=== PATIENT | female | born 1985 | race Caucasian/White ===

== ENCOUNTER 2023-07-23 00:55 | Emergency (ER) | payer SELFPAY ==
[~2023-07-23] VITALS: Ht 160 cm; Wt 136.4 kg
[~2023-07-23 00:55] MED LIST: OMNICEF 300MG300 MG PO
[2023-07-23 01:07] VITALS: BP 139/89; PULSE 92; TEMP 98.2
[2023-08-13] MEDS ORDERED: XANAX 0.5MG0.5 MG PO (10:09)
[2023-08-13] MEDS ORDERED: HCTZ12.5TAB PO (12:15)
[2023-09-12] MEDS ORDERED: PREDNISONE20 MG PO (21:18)
[2023-09-18] MEDS ORDERED: CEPHALEXIN250 M1 PO (22:26)
== END 2023-07-23 02:35 | disposition left against medical advice (07) ==
LOC: COL.ER 00:55
DX: R10.33 Periumbilical pain (principal); R11.10 Vomiting, unspecified

== ENCOUNTER 2023-09-07 21:15 | Emergency (ER) | payer SELFPAY ==
[~2023-09-07] VITALS: Ht 160 cm; Wt 144.1 kg
[~2023-09-07 21:15] MED LIST changes: +HCTZ12.5TAB PO; +XANAX 0.5MG0.5 MG PO
[2023-09-07 21:22] VITALS: TEMP 98.4
[2023-09-07 21:45] LABS: BASO # 0.1 K/mm3 (0.0-0.2); BASO % 0.6 % (0.0-2.0); EOS # 0.1 K/mm3 (0.0-0.7); EOS % 1.2 % (0.0-4.0); GRAN # 6.5 K/mm3 (1.4-6.5); GRAN % 54.9 % (42.2-75.2); HEMATOCRIT 40.9 % (37.0-47.0); HEMOGLOBIN 13.3 g/dl (12.5-16.0); LYMPH # 4.4 K/mm3 (1.2-3.4); LYMPH % 37.4 % (20.0-51.0); MEAN CELL VOLUME 83 fl (80.0-100.0); MEAN CORPUSCULAR HEMOGLOBIN 27 pg (27-31); MEAN CORPUSCULAR HGB CONC 33 g/dl (33.0-37.0); MEAN PLATELET VOLUME 10.5 fl (7.4-10.4); MONO # 0.7 K/mm3 (0.1-0.6); MONO % 5.6 % (1.7-9.3); PLATELET COUNT 251 K/mm3 (130-400); RED BLOOD COUNT 4.91 M/mm3 (4.10-5.30); REDCELL DISTRIBUTION WIDTH-CV 14.3 % (11.5-14.5)
[2023-09-07 22:01] LABS: ALANINE AMINOTRANSFERASE 21 U/L (0-55); ALBUMIN 3.5 gm/dL (3.5-5.0); ALKALINE PHOSPHATASE 71 U/L (40-150); ANION GAP 9 mmol/L (7-16); AST,SGOT 16 U/L (5-34); BILIRUBIN,TOTAL 0.3 mg/dL (0.2-1.2); BLOOD UREA NITROGEN 8 mg/dL (7-19); C-REACTIVE PROTEIN 0.92 mg/dL (0.00-0.50); CALCIUM 9.1 mg/dL (8.4-10.2); CARBON DIOXIDE 25 mmol/L (22-29); CHLORIDE 105 mmol/L (98-107); CREATININE, serum 0.87 mg/dL (0.57-1.11); GLUCOSE 95 mg/dL (70-99); POTASSIUM 3.6 mmol/L (3.5-4.5); SODIUM 139 mmol/L (136-145); TOTAL PROTEIN 7.1 gm/dL (6.2-8.1)
[2023-09-07 22:07] LABS: TROPONIN-I < 0.010 ng/mL (0.00-0.033)
[2023-09-07 22:10] LABS: BAND 1 % (0-10); EOSINOPHIL 1 % (0-4); HYPOCHROMIA 1+; LYMPHOCYTE 33 % (20.0-51.0); NEUTROPHILS 60 % (42.0-75.2); PLATELET ESTIMATE NORMAL (NORMAL)
[2023-09-07] MEDS ORDERED: PROAIR HFA0.09 MG/AC IH (23:56)
[2023-09-08 00:06] VITALS: BP 154/87; PULSE 87
== END 2023-09-08 00:14 | disposition home or self-care (01) ==
LOC: COL.ER 21:15
PROVIDERS: Nurse Practitioner Primary Care
DX: J40 Bronchitis, not specified as acute or chronic (principal); Z87.891 Personal history of nicotine dependence
CPT/HCPCS: J1200; J1885

== ENCOUNTER 2023-10-15 22:19 | Emergency (ER) | payer OTHER ==
[~2023-10-15] VITALS: Ht 160 cm; Wt 136.4 kg
[~2023-10-15 22:19] MED LIST changes: +CEPHALEXIN250 M1 PO; +PREDNISONE20 MG PO; +PROAIR HFA0.09 MG/AC IH
[2023-10-15 22:25] VITALS: TEMP 97.9
[2023-10-15 23:07] LABS: COLLECTION METHOD CLEAN CATCH
[2023-10-15 23:14] LABS: BASO # 0.1 K/mm3 (0.0-0.2); BASO % 0.6 % (0.0-2.0); EOS # 0.2 K/mm3 (0.0-0.7); EOS % 1.6 % (0.0-4.0); GRAN # 5.5 K/mm3 (1.4-6.5); GRAN % 55.9 % (42.2-75.2); HEMATOCRIT 39.5 % (37.0-47.0); HEMOGLOBIN 12.9 g/dl (12.5-16.0); LYMPH # 3.5 K/mm3 (1.2-3.4); MEAN CELL VOLUME 83 fl (80.0-100.0); MEAN CORPUSCULAR HEMOGLOBIN 27 pg (27-31); MEAN CORPUSCULAR HGB CONC 33 g/dl (33.0-37.0); MEAN PLATELET VOLUME 10.7 fl (7.4-10.4); MONO # 0.6 K/mm3 (0.1-0.6); MONO % 5.6 % (1.7-9.3); PLATELET COUNT 247 K/mm3 (130-400); RED BLOOD COUNT 4.79 M/mm3 (4.10-5.30); REDCELL DISTRIBUTION WIDTH-CV 13.6 % (11.5-14.5)
[2023-10-15 23:17] LABS: PH 6.5 (5.0-8.5); URINE APPEARANCE Hazy (CLEAR/HAZY); URINE BLOOD 2+ (NEGATIVE); URINE COLOR Yellow (YELLOW); URINE GLUCOSE Negative (NEGATIVE); URINE KETONE Negative (NEGATIVE); URINE NITRATE Negative (NEGATIVE); URINE PROTEIN(semi-quant) Negative (NEGATIVE); URINE UROBILINOGEN 0.2 E.U/dL (0.2-1.0)
[2023-10-15 23:31] LABS: ALBUMIN 3.4 gm/dL (3.5-5.0); BILIRUBIN,TOTAL 0.3 mg/dL (0.2-1.2); CALCIUM 9.1 mg/dL (8.4-10.2); CREATININE, serum 0.79 mg/dL (0.57-1.11); POTASSIUM 3.6 mmol/L (3.5-4.5)
[2023-10-15 23:37] LABS: AMORPHOUS CRYSTAL Present (NOT PRESENT); URINE BACTERIA Rare /hpf (NONE SEEN)
[2023-10-16 00:09] VITALS: BP 152/97; PULSE 79
== END 2023-10-16 00:09 | disposition home or self-care (01) ==
LOC: COL.ER 22:19
PROVIDERS: Physician Assistant
DX: R10.30 Lower abdominal pain, unspecified (principal); R35.0 Frequency of micturition; R30.0 Dysuria

== ENCOUNTER 2023-10-30 19:10 | Emergency (ER) | payer OTHER ==
[~2023-10-30] VITALS: Ht 160 cm; Wt 136.4 kg
[2023-10-30 19:25] VITALS: BP 158/113; PULSE 75; TEMP 98.2
== END 2023-10-30 19:57 | disposition left against medical advice (07) ==
LOC: COL.ER 19:10
DX: R51.9 Headache, unspecified (principal)

== ENCOUNTER 2023-11-15 18:19 | Emergency (ER) | payer OTHER ==
[~2023-11-15] VITALS: Ht 160 cm; Wt 136.4 kg
[2023-11-15 18:26] VITALS: TEMP 98
[2023-11-15 18:57] LABS: BASO # 0.1 K/mm3 (0.0-0.2); BASO % 0.5 % (0.0-2.0); EOS # 0.1 K/mm3 (0.0-0.7); GRAN # 4.8 K/mm3 (1.4-6.5); GRAN % 52.2 % (42.2-75.2); HEMATOCRIT 40.1 % (37.0-47.0); HEMOGLOBIN 12.9 g/dl (12.5-16.0); LYMPH # 3.7 K/mm3 (1.2-3.4); LYMPH % 40.8 % (20.0-51.0); MEAN CELL VOLUME 83 fl (80.0-100.0); MEAN CORPUSCULAR HEMOGLOBIN 27 pg (27-31); MEAN CORPUSCULAR HGB CONC 32 g/dl (33.0-37.0); MEAN PLATELET VOLUME 10.4 fl (7.4-10.4); MONO # 0.5 K/mm3 (0.1-0.6); MONO % 5.2 % (1.7-9.3); PLATELET COUNT 252 K/mm3 (130-400); RED BLOOD COUNT 4.85 M/mm3 (4.10-5.30); REDCELL DISTRIBUTION WIDTH-CV 13.6 % (11.5-14.5)
[2023-11-15 19:11] LABS: ALANINE AMINOTRANSFERASE 21 U/L (0-55); ALBUMIN 3.5 gm/dL (3.5-5.0); ALKALINE PHOSPHATASE 60 U/L (40-150); ANION GAP 9 mmol/L (7-16); AST,SGOT 17 U/L (5-34); BILIRUBIN,TOTAL 0.2 mg/dL (0.2-1.2); BLOOD UREA NITROGEN 12 mg/dL (7-19); CALCIUM 8.9 mg/dL (8.4-10.2); CARBON DIOXIDE 23 mmol/L (22-29); CHLORIDE 106 mmol/L (98-107); CREATININE, serum 1.11 mg/dL (0.57-1.11); GLUCOSE 89 mg/dL (70-99); POTASSIUM 3.7 mmol/L (3.5-4.5); SODIUM 138 mmol/L (136-145); TOTAL PROTEIN 6.9 gm/dL (6.2-8.1)
[2023-11-15 19:18] LABS: COLLECTION METHOD CLEAN CATCH
[2023-11-15 19:20] LABS: HCG,QUANTITATIVE < 1 mIU/mL
[2023-11-15 19:42] LABS: URINE APPEARANCE Turbid (CLEAR/HAZY); URINE COLOR Red (YELLOW)
[2023-11-15 19:43] LABS: SQUAMOUS EPITHELIAL 0-2 /hpf (0-10); URINE BACTERIA Occasional /hpf (NONE SEEN); URINE BLOOD 3+ (NEGATIVE); URINE GLUCOSE Negative (NEGATIVE); URINE KETONE Negative (NEGATIVE); URINE NITRATE Negative (NEGATIVE); URINE PROTEIN(semi-quant) 2+ (NEGATIVE); URINE RBC 20-50 /hpf (0-2); URINE UROBILINOGEN 0.2 E.U/dL (0.2-1.0)
[2023-11-15] MEDS ORDERED: CEPHALEXIN500 M1 PO (20:12)
[2023-11-15] MEDS ORDERED: DIFLUCAN150 MG PO (20:12)
[2023-11-15 20:25] VITALS: BP 157/106; PULSE 80
== END 2023-11-15 20:25 | disposition home or self-care (01) ==
LOC: COL.ER 18:19
PROVIDERS: Physician Assistant
DX: N93.9 Abnormal uterine and vaginal bleeding, unspecified (principal); N39.0 Urinary tract infection, site not specified; E66.01 Morbid (severe) obesity due to excess calories; Z68.43 Body mass index [BMI] 50.0-59.9, adult
CPT/HCPCS: J1885; J7030

== ENCOUNTER → 2023-11-17 | Outpatient (CLI) | payer OTHER ==
[~2023-11-17] MED LIST changes: +CEPHALEXIN500 M1 PO; +DIFLUCAN150 MG PO
[2023-11-17 14:09] LABS: ALBUMIN 3.5 gm/dL (3.5-5.0); BILIRUBIN,TOTAL 0.4 mg/dL (0.2-1.2); CREATININE, serum 0.76 mg/dL (0.57-1.11)
[2023-11-17 14:29] LABS: TSH w REFLEX 0.872 uIU/mL (0.350-4.940)
== END ==
LOC: COL.LAB 13:15
DX: Z01.89 Encounter for other specified special examinations (principal)

== ENCOUNTER 2023-11-19 20:07 | Emergency (ER) | payer OTHER ==
[~2023-11-19] VITALS: Ht 160 cm; Wt 136.4 kg
[2023-11-19 20:13] VITALS: TEMP 98
[2023-11-19 22:01] VITALS: BP 137/97; PULSE 91
== END 2023-11-19 22:01 | disposition home or self-care (01) ==
LOC: COL.ER 20:07
DX: B34.9 Viral infection, unspecified (principal); R05.9 Cough, unspecified; R51.9 Headache, unspecified; R09.81 Nasal congestion; R10.9 Unspecified abdominal pain

== ENCOUNTER 2023-12-11 18:50 | Emergency (ER) | payer OTHER ==
[~2023-12-11] VITALS: Ht 160 cm; Wt 142.7 kg
[2023-12-11 18:56] VITALS: TEMP 98
[2023-12-11] MEDS ORDERED: LR 1,000 ML IV ONE (19:15)
[2023-12-11 19:22] LABS: HEMATOCRIT 42.7 % (37.0-47.0); HEMOGLOBIN 13.8 g/dl (12.5-16.0); MEAN CELL VOLUME 81 fl (80.0-100.0); MEAN CORPUSCULAR HEMOGLOBIN 26 pg (27-31); MEAN CORPUSCULAR HGB CONC 32 g/dl (33.0-37.0); MEAN PLATELET VOLUME 10.3 fl (7.4-10.4); PLATELET COUNT 326 K/mm3 (130-400); RED BLOOD COUNT 5.27 M/mm3 (4.10-5.30); REDCELL DISTRIBUTION WIDTH-CV 13.5 % (11.5-14.5)
[2023-12-11 19:37] LABS: ALBUMIN 3.7 gm/dL (3.5-5.0); BILIRUBIN,TOTAL 0.3 mg/dL (0.2-1.2); CALCIUM 9.4 mg/dL (8.4-10.2); CREATININE, serum 0.83 mg/dL (0.57-1.11); POTASSIUM 3.7 mmol/L (3.5-4.5); TOTAL PROTEIN 7.9 gm/dL (6.2-8.1)
[2023-12-11 19:43] LABS: COLLECTION METHOD CLEAN CATCH
[2023-12-11] MEDS ORDERED: Ondansetron 4 MG/2 ML VIAL IV ONE (19:45)
[2023-12-11 20:11] LABS: PH 5.5 (5.0-8.5); URINE APPEARANCE Cloudy (CLEAR/HAZY); URINE BLOOD 2+ (NEGATIVE); URINE COLOR Yellow (YELLOW); URINE GLUCOSE Negative (NEGATIVE); URINE KETONE Negative (NEGATIVE); URINE NITRATE Negative (NEGATIVE); URINE PROTEIN(semi-quant) Negative (NEGATIVE); URINE UROBILINOGEN 0.2 E.U/dL (0.2-1.0)
[2023-12-11 20:18] LABS: EOSINOPHIL 1 % (0-4); LYMPHOCYTE 50 % (20.0-51.0); NEUTROPHILS 44 % (42.0-75.2); PLATELET ESTIMATE NORMAL (NORMAL)
[2023-12-11] MEDS ORDERED: ZOFRAN ODT4 MG PO (20:25)
[2023-12-11] MEDS ORDERED: Home Ondansetron ODT 4 MG #2 ODT/PACK PO ONE (20:30)
[2023-12-11 20:51] VITALS: BP 123/76; PULSE 74
== END 2023-12-11 20:51 | disposition home or self-care (01) ==
LOC: COL.ER 18:50
PROVIDERS: Emergency Medicine
DX: R11.2 Nausea with vomiting, unspecified (principal); R53.81 Other malaise; Z87.891 Personal history of nicotine dependence; Z32.02 Encounter for pregnancy test, result negative
CPT/HCPCS: J2405; J7120

== ENCOUNTER 2024-01-07 13:51 | Emergency (ER) | payer OTHER ==
[~2024-01-07] VITALS: Ht 160 cm; Wt 145.5 kg
[~2024-01-07 13:51] MED LIST changes: +ZOFRAN ODT4 MG PO
[2024-01-07 13:58] VITALS: BP 146/96; PULSE 91; TEMP 97.9
== END 2024-01-07 14:39 | disposition left against medical advice (07) ==
LOC: COL.ER 13:51
DX: M79.672 Pain in left foot (principal)

== ENCOUNTER 2024-02-06 00:53 | Emergency (ER) | payer OTHER ==
[~2024-02-06] VITALS: Ht 160 cm; Wt 143.2 kg
[2024-02-06 01:09] VITALS: BP 151/100; PULSE 79; TEMP 98.1
[2024-02-06] MEDS ORDERED: CEPHALEXIN500 M1 PO (01:56)
[2024-02-06] MEDS ORDERED: Cephalexin 500 MG CAP PO ONE (02:00)
== END 2024-02-06 02:10 | disposition home or self-care (01) ==
LOC: COL.ER 00:53
DX: L03.311 Cellulitis of abdominal wall (principal)

== ENCOUNTER 2024-02-07 23:44 | Emergency (ER) | payer OTHER ==
[~2024-02-07] VITALS: Ht 160 cm; Wt 136.4 kg
[2024-02-08] MEDS ORDERED: Sulfamethoxazole/Trimethoprim 800-160 MG TAB PO ONE (02:00)
[2024-02-08] MEDS ORDERED: BACTRIM DS 8001 TAB PO (02:24)
[2024-02-08 02:35] VITALS: BP 138/97; PULSE 83; TEMP 98.4
== END 2024-02-08 02:35 | disposition home or self-care (01) ==
LOC: COL.ER 23:44
DX: L02.211 Cutaneous abscess of abdominal wall (principal)

== ENCOUNTER 2024-02-22 19:13 | Emergency (ER) | payer SELFPAY ==
[~2024-02-22] VITALS: Ht 160 cm; Wt 143.2 kg
[~2024-02-22 19:13] MED LIST changes: +BACTRIM DS 8001 TAB PO
[2024-02-22 19:20] VITALS: TEMP 98.4
[2024-02-22] MEDS ORDERED: Ondansetron 4 MG/2 ML VIAL IV ONE ×2 (20:00→21:15)
[2024-02-22] MEDS ORDERED: LR 1,000 ML IV ONE (20:00)
[2024-02-22 20:26] LABS: BASO # 0.1 K/mm3 (0.0-0.2); BASO % 0.6 % (0.0-2.0); EOS % 0.3 % (0.0-4.0); GRAN # 7.7 K/mm3 (1.4-6.5); GRAN % 72.3 % (42.2-75.2); HEMATOCRIT 40.4 % (37.0-47.0); HEMOGLOBIN 13.1 g/dl (12.5-16.0); LYMPH # 2.5 K/mm3 (1.2-3.4); LYMPH % 22.9 % (20.0-51.0); MEAN CELL VOLUME 81 fl (80.0-100.0); MEAN CORPUSCULAR HEMOGLOBIN 26 pg (27-31); MEAN CORPUSCULAR HGB CONC 32 g/dl (33.0-37.0); MEAN PLATELET VOLUME 10.2 fl (7.4-10.4); MONO # 0.4 K/mm3 (0.1-0.6); MONO % 3.6 % (1.7-9.3); PLATELET COUNT 292 K/mm3 (130-400); RED BLOOD COUNT 5.02 M/mm3 (4.10-5.30); REDCELL DISTRIBUTION WIDTH-CV 13.9 % (11.5-14.5)
[2024-02-22 20:44] LABS: ALBUMIN 3.6 g/dL (3.5-5.0); BILIRUBIN,TOTAL 0.3 mg/dL (0.2-1.2); CALCIUM 9.2 mg/dL (8.4-10.2); CREATININE, serum 0.78 mg/dL (0.57-1.11); POTASSIUM 4.1 mEq/L (3.5-4.5); TOTAL PROTEIN 7.7 g/dl (6.2-8.1)
[2024-02-22] MEDS ORDERED: Home Ondansetron ODT 4 MG #2 ODT/PACK PO ONE (21:30)
[2024-02-23 01:12] VITALS: BP 158/98; PULSE 83
== END 2024-02-22 21:45 | disposition home or self-care (01) ==
LOC: COL.ER 19:13
PROVIDERS: Emergency Medicine
DX: R11.2 Nausea with vomiting, unspecified (principal); F32.A Depression, unspecified; Z79.899 Other long term (current) drug therapy
CPT/HCPCS: J2405; J7120

== ENCOUNTER 2024-03-24 20:49 | Emergency (ER) | payer SELFPAY ==
[~2024-03-24] VITALS: Ht 160 cm; Wt 145.5 kg
[2024-03-24 20:51] VITALS: TEMP 98.5
[2024-03-24 21:28] LABS: BASO # 0.1 K/mm3 (0.0-0.2); BASO % 0.5 % (0.0-2.0); EOS # 0.1 K/mm3 (0.0-0.7); EOS % 0.6 % (0.0-4.0); GRAN # 7.4 K/mm3 (1.4-6.5); GRAN % 58.3 % (42.2-75.2); HEMATOCRIT 42.1 % (37.0-47.0); HEMOGLOBIN 13.7 g/dl (12.5-16.0); LYMPH # 4.5 K/mm3 (1.2-3.4); LYMPH % 35.1 % (20.0-51.0); MEAN CELL VOLUME 80 fl (80.0-100.0); MEAN CORPUSCULAR HEMOGLOBIN 26 pg (27-31); MEAN CORPUSCULAR HGB CONC 33 g/dl (33.0-37.0); MEAN PLATELET VOLUME 10.4 fl (7.4-10.4); MONO # 0.6 K/mm3 (0.1-0.6); PLATELET COUNT 296 K/mm3 (130-400); RED BLOOD COUNT 5.24 M/mm3 (4.10-5.30); REDCELL DISTRIBUTION WIDTH-CV 14.4 % (11.5-14.5)
[2024-03-24] MEDS ORDERED: NS 500 ML IV ONE (21:30)
[2024-03-24] MEDS ORDERED: Sucralfate Susp 1 GM/10 ML UD PO ONE (21:30)
[2024-03-24 21:31] LABS: INR 1.1 (0.8-3.0); PROTHROMBIN TIME 11.4 SECONDS (9.7-12.8)
[2024-03-24 21:33] LABS: PARTIAL THROMBOPLASTIN TIME 30.1 SECONDS (26.0-37.0)
[2024-03-24 21:37] LABS: D-DIMER < 200.00 ng/mLDDu (200-230)
[2024-03-24 21:42] LABS: ALANINE AMINOTRANSFERASE 27 U/L (0-55); ALBUMIN 3.5 g/dL (3.5-5.0); ALKALINE PHOSPHATASE 68 U/L (40-150); ANION GAP 12 mmol/L (7-16); AST,SGOT 22 U/L (5-34); BILIRUBIN,TOTAL 0.2 mg/dL (0.2-1.2); BLOOD UREA NITROGEN 9 mg/dL (7-19); CALCIUM 9.5 mg/dL (8.4-10.2); CHLORIDE 104 mEq/L (98-107); CREATININE, serum 0.87 mg/dL (0.57-1.11); GLUCOSE 118 mg/dL (70-99); LIPASE 22 U/L (8-78); POTASSIUM 3.2 mEq/L (3.5-4.5); SODIUM 139 mEq/L (136-145); TOTAL PROTEIN 7.6 g/dl (6.2-8.1)
[2024-03-24 22:29] LABS: TROPONIN-I < 0.010 ng/mL (0.00-0.033)
[2024-03-25 00:01] VITALS: BP 152/108; PULSE 78
[2024-04-27] MEDS ORDERED: CEPHALEXIN500 M1 PO (12:28)
== END 2024-03-25 00:01 | disposition home or self-care (01) ==
LOC: COL.ER 20:49
PROVIDERS: Emergency Medicine
DX: I10 Essential (primary) hypertension (principal); I21.3 ST elevation (STEMI) myocardial infarction of unspecified site
CPT/HCPCS: J2765; J7040

== ENCOUNTER 2024-08-21 13:38 | Emergency (ER) | payer SELFPAY ==
[~2024-08-21] VITALS: Ht 160 cm; Wt 150.0 kg
[2024-08-21 13:44] VITALS: TEMP 98.4
[2024-08-21 14:48] LABS: COLLECTION METHOD CLEAN CATCH
[2024-08-21 14:59] LABS: PH 6.5 (5.0-8.5); URINE APPEARANCE CLOUDY (CLEAR/HAZY); URINE BLOOD 1+ (NEGATIVE); URINE COLOR YELLOW (YELLOW); URINE GLUCOSE NEGATIVE (NEGATIVE); URINE KETONE NEGATIVE (NEGATIVE); URINE NITRATE NEGATIVE (NEGATIVE); URINE PROTEIN(semi-quant) NEGATIVE (NEGATIVE); URINE UROBILINOGEN 0.2 E.U/dL (0.2-1.0)
[2024-08-21] MEDS ORDERED: Ketorolac 30 MG/ML VIAL IV ONE (15:30)
[2024-08-21 16:12] LABS: HEMATOCRIT 38.7 % (37.0-47.0); HEMOGLOBIN 12.5 g/dl (12.5-16.0); MEAN CELL VOLUME 79 fl (80.0-100.0); MEAN CORPUSCULAR HEMOGLOBIN 26 pg (27-31); MEAN CORPUSCULAR HGB CONC 32 g/dl (33.0-37.0); MEAN PLATELET VOLUME 9.8 fl (7.4-10.4); PLATELET COUNT 298 K/mm3 (130-400); RED BLOOD COUNT 4.91 M/mm3 (4.10-5.30); REDCELL DISTRIBUTION WIDTH-CV 14.6 % (11.5-14.5)
[2024-08-21] MEDS ORDERED: Ketorolac 60 MG/2 ML VIAL IM ONE (16:15)
[2024-08-21 16:33] LABS: ALBUMIN 3.4 g/dL (3.5-5.0); BILIRUBIN,TOTAL 0.3 mg/dL (0.2-1.2); C-REACTIVE PROTEIN 0.71 mg/dL (0.00-0.50); CALCIUM 9.2 mg/dL (8.4-10.2); CREATININE, serum 0.84 mg/dL (0.57-1.11); POTASSIUM 3.7 mEq/L (3.5-4.5); TOTAL PROTEIN 7.2 g/dl (6.2-8.1)
[2024-08-21] MEDS ORDERED: Iohexol 300 - 100 ML VIAL IV ONE (17:14)
[2024-08-21] MEDS ORDERED: NS 100 ML IV SCH (17:15)
[2024-08-21 17:22] LABS: BAND 5 % (0-10); EOSINOPHIL 1 % (0-4); LYMPHOCYTE 31 % (20.0-51.0); NEUTROPHILS 59 % (42.0-75.2)
[2024-08-21] MEDS ORDERED: metroNIDAZOLE 250 MG TAB PO ONE (18:30)
[2024-08-21 18:31] LABS: COLLECTION METHOD CLEAN CATCH
[2024-08-21 18:36] LABS: PH 6.5 (5.0-8.5); URINE APPEARANCE CLEAR (CLEAR/HAZY); URINE BLOOD NEGATIVE (NEGATIVE); URINE COLOR YELLOW (YELLOW); URINE GLUCOSE NEGATIVE (NEGATIVE); URINE KETONE NEGATIVE (NEGATIVE); URINE NITRATE NEGATIVE (NEGATIVE); URINE PROTEIN(semi-quant) NEGATIVE (NEGATIVE); URINE UROBILINOGEN 0.2 E.U/dL (0.2-1.0)
[2024-08-21] MEDS ORDERED: FLAGYL500 MG PO (18:49)
[2024-08-21 19:11] VITALS: BP 140/96; PULSE 82
== END 2024-08-21 19:12 | disposition home or self-care (01) ==
LOC: COL.ER 13:38
PROVIDERS: Emergency Medicine; Nurse Practitioner
DX: N76.0 Acute vaginitis (principal)
CPT/HCPCS: J1885; Q9967